=== PATIENT | male | born 1940 | race Caucasian/White ===

== ENCOUNTER 2017-04-07 10:41 | Emergency (ER) | payer MEDICARE, OTHER, MEDICAID ==
[2017-04-07 10:48] VITALS: BP 100/59; PULSE 92; RESP 22; O2SAT 82
[2017-04-07 11:02] VITALS: PULSE 89; RESP 23; O2SAT 90
--- NOTE | 2017-04-07 11:07 | ED.REPORT ---
HPI-General Illness Date of Service Apr 07, 2017 ED Provider: Clemente Zhou MD Patient is a 77 year old male with a history of epilepsy, BPH and Alzheimer's who presents to the ED via EMS due to respiratory distress. The staff report that the patient's oxygen sats were in the 70's and he appeared to be in distress. Staff at [facility] report that the patient has been aspirating for the past few days. Per staff at [facility], there is not a physician available on the weekend to set up hospice care. The patient is DNR with comfort measures only. Patient's reports that the patient has been steady declining over the past several months. Patient is unable to provide a history. 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 Unable to Obtain Hx: Patient condition, Mental status Arrived By: Ambulance Past Medical History Past Medical History Notes: CODE STATUS: DNR, comfort measures only, no antibiotics Past Medical History epilepsy Alzheimer's hypothyroid BPH Past Surgical History unknown Smoking History Unknown if Ever Smoker Social History Other Social History: Lives in long-term Review of Systems +respiratory distress Unable to Obtain ROS Patient condition, Mental status Physical Exam Vital Signs Vital Signs Date Time Temp Pulse Resp B/P Pulse Ox O2 Delivery O2 Flow Rate FiO2 04/07/17 13:50 37.6 95 14 115/64 83 Room Air 5 04/07/17 13:23 37.6 95 14 115/64 83 Room Air 04/07/17 11:02 89 23 90 Simple Mask 5 04/07/17 10:48 37.7 92 22 100/59 82 Room Air Initial VS: Reviewed GENERAL: patient does not open eyes to voice moves eyes to light touch and voice appears in no apparent distress Head / Eyes: Atraumatic, Normocephalic Respiratory / Chest: Atraumatic, No respiratory distress, No rales mildly tachypneic Cardiovascular: Regular rhythm, Heart sounds NL Heart Rate / Rhythm: Positive: Tachycardia (mild) Abdomen: Atraumatic, Soft decreased bowel sounds but some still present no apparent abdominal tenderness Lower Extremity / Pelvis / MS: Atraumatic, No edema Skin: Atraumatic, Color NL, No rash, Warm, Dry Re-Eval/Medical Decision Time of Eval: 11:40 Re-Evaluation/Progress Note: Discussed plan for care of the patient with patient's . Patient's confirms no antibioitcs or intervention. Discussed plan to monitor patient without supplemental oxygen and monitor if patient seems in distress. Time of Eval: 12:19 Re-Evaluation/Progress Note: Updated the patient's about plan for Hospice care and return of patient to [facility] care. All questions were addressed. Consultation #1: Consulted With: On-call physician Call Returned at: 11:27 Note: Consult with Dr. Bud Moffett, who will contact [facility] and arrnage for symptomatic control with new prescriptions. Consultation #2: Call Returned at: 11:56 Note: Consult with Hospice care, who will contact the patient's tomorrow morning or Sunday. Counseled Regarding: Diagnosis, Need for follow-up, When/why to return to ED Discharge & Departure Primary Impression: Distressed breathing Discharge Condition All VS Reviewed: Yes Condition: Stable Patient Instructions: Alzheimer Disease (DC) Additional Instructions: Mike appears to be comfortable. No intervention or diagnostics are indicated. Medication will be provided to help with symptoms of breathlessness or pain. Hospitalist was contacted and they will be in contact with Mrs. Terrazas either tomorrow or Sunday. I consulted with Dr. Bud Mckeon and he recommends morphine 5 mg every 3 hours as needed for pain or respiratory difficulties. Scribe Attestation Portions of this note were transcribed by Kelly Angeles. I, Dr. Zhou personally performed the history, physical exam and medical decision-making; I reviewed and confirmed the accuracy of the information in the transcribed note. Signed by: Xin Hunter, 04/07/17 Clemente Zhou MD Apr 07, 2017 11:07 Mara Angeles Apr 07, 2017 11:16 Chalo Smith DO Apr 07, 2017 13:16
[2017-04-07 13:23] VITALS: BP 115/64; PULSE 95; RESP 14; O2SAT 83
[2017-04-07 13:50] VITALS: BP 115/64; PULSE 95; RESP 14; O2SAT 83
== END 2017-04-07 13:48 ==
LOC: SED 10:41 → EDBD 10:41 → SED 13:48
DX: R06.09 Other forms of dyspnea (principal); G30.9 Alzheimer's disease, unspecified; E03.9 Hypothyroidism, unspecified; Z87.448 Personal history of other diseases of urinary system; Z86.69 Personal history of other diseases of the nervous system and sense organs; Z66 Do not resuscitate